=== PATIENT | male | born 1980 | race African-American/Black ===

== ENCOUNTER 2024-01-05 13:39 | Emergency (ER) | payer BC, OTHER ==
[~2024-01-05] VITALS: Ht 172.7 cm; Wt 91.0 kg
[2024-01-05 13:53] VITALS: BP 123/71; RESP 16; TEMP 98.4; O2SAT 100
[2024-01-05 13:54] VITALS: PULSE 76; O2SAT 99
[2024-01-05 15:00] LABS: BASOPHILS % 0.7 % (0.0-2.0); EOSINOPHILS % 3.9 % (0.0-5.0); HEMATOCRIT. 45.7 % (42.0-52.0); MEAN CORPUSCULAR HEMOGLOBIN 29.8 pg (28.0-32.0); MEAN CORPUSCULAR HGB CONC 32.8 g/dL (31.0-37.0); MEAN CORPUSCULAR VOLUME 90.8 fL (80.0-94.0); MEAN PLATELET VOLUME 8.8 fl (7.4-10.4); MONOCYTES % 11.5 % (2.0-8.0); NEUTROPHILS % 39.9 % (40.0-76.0); PLATELET 249 x1000/uL (130-400); RED BLOOD CELL COUNT 5.03 mill/uL (4.7-6.1); RED CELL DISTRIBUTION WIDTH 13.1 % (11.6-14.6); WHITE BLOOD COUNT 3.3 x1000/uL (4.5-11.0)
[2024-01-05 15:08] LABS: CHLORIDE 111 mEq/L (98-107); POTASSIUM 3.5 mEq/L (3.5-5.1); SODIUM 143 mEq/L (136-145)
[2024-01-05 15:09] LABS: CALCIUM 9.3 mg/dL (8.7-10.4); CARBON DIOXIDE 25 mEq/L (21-32)
[2024-01-05 15:14] LABS: GLUCOSE 116 mg/dL (70-105); UREA NITROGEN BLOOD 8 mg/dL (9-23)
[2024-01-05] MEDS ORDERED: IOHEXOL-300 100 ML BOTTLE ONE (18:42)
[2024-01-05] MEDS ORDERED: METH-653 MT (18:53)
== END 2024-01-05 19:07 | disposition home or self-care (01) ==
LOC: ER 14:08
DX: S40.012A Contusion of left shoulder, initial encounter (principal); S30.1XXA Contusion of abdominal wall, initial encounter; R51.9 Headache, unspecified; V49.9XXA Car occupant (driver) (passenger) injured in unspecified traffic accident, initial encounter; Y93.89 Activity, other specified; Y92.89 Other specified places as the place of occurrence of the external cause; Y99.8 Other external cause status
CPT/HCPCS: 80048; 85025; 36415; 70450; 74177; 99285; Q9967; Z7610